=== PATIENT | female | born 1945 | race African-American/Black ===

== ENCOUNTER 2017-08-09 10:29 | Emergency (ER) | payer OTHER, MEDICAID ==
[~2017-08-09] VITALS: Ht 172.7 cm; Wt 80.7 kg
[~2017-08-09 10:29] MED LIST: [UNRECOGNIZED DRUG - REMARK]; dilaudid; fentanyl
[2017-08-09 10:46] VITALS: BP 155/110
[2017-08-09] MEDS ORDERED: DEXAMETHASONE SOD PHOS 10MG/1ML VIAL INJ IM ONE (11:45)
[2017-08-09] MEDS ORDERED: cefTRIAXone SOD 1,000 MG VL IM ONE (11:45)
== END 2017-08-09 12:00 | disposition home or self-care (01) ==
LOC: EDBD 10:29 → ER 10:29
DX: J40 Bronchitis, not specified as acute or chronic (principal); J44.9 Chronic obstructive pulmonary disease, unspecified; I10 Essential (primary) hypertension; Z90.89 Acquired absence of other organs; Z90.710 Acquired absence of both cervix and uterus
CPT/HCPCS: 96372; 99284; J0696; J1100